=== PATIENT | female | born 1960 | race Caucasian/White ===

== ENCOUNTER → 2018-11-18 | Day surgery (SDC) | payer OTHER ==
--- NOTE | 2018-11-18 10:52 | RAD REPORT ---
EXAM DESCRIPTION: US - Guided FNA Non Breast - 11/18/2018 10:37 am CLINICAL HISTORY: E04.2 COMPARISON: Chest Pa And Lat (2 Views) dated 05/25/2017; Chest Pa And Lat (2 Views) dated 05/23/2017N o comparisons FINDINGS: Preoperative diagnosis: 1.5 cm calcified left thyroid nodule.. Post operative diagnosis: Same. Conscious Sedation: None Fluoroscopy time: None Contrast used: None Estimated blood loss: Minimal Specimens:4 x 25 gauge FNA samples The was prepped and draped in the usual sterile fashion. 1% lidocaine was infiltrated into the subcu taneous tissues for local anesthesia. Real time ultrasound scanning of the left thyroid demonstrated heavily rim calcified 1.5 cm nodule laterally. Under ultrasound guidance, using multiple 25 gauge FNA needle, 4 specimens were obtained of this lesion and sent to pathology for evaluation. There were no complications. IMPRESSION: Successful ultrasound-guided FNA procedure left thyroid nodule.
== END ==
LOC: FNA 09:38
PROVIDERS: ATTEND Nurse Practitioner Family
DX: E04.2 Nontoxic multinodular goiter (principal)
CPT/HCPCS: 88162